=== PATIENT | female | born 1995 | race African-American/Black ===

== ENCOUNTER 2018-11-19 21:35 | Inpatient (IN) ==
[2018-11-19] MEDS ORDERED: ONDANSETRON 4 MG/2 ML VIAL IV PRN (21:42)
[2018-11-19] MEDS ORDERED: FAMOTIDINE 20 MG/2 ML VIAL IV PRN (21:42)
[2018-11-19] MEDS ORDERED: MEPERIDINE 50 MG/1 ML VIAL IV PRN (21:42)
[2018-11-19] MEDS ORDERED: CITRIC ACID/SODIUM CITRATE 30 ML UDCUP PO PRN (21:50)
[2018-11-19 22:08] LABS: Basophils % 0.3 % (0.0-0.8); Eosinophils # 0.1 10*3/uL (0.0-0.87); Eosinophils % 0.4 % (0.00-10.9); Hematocrit 32.6 VOL% (35.7-47.0); Hemoglobin 10.4 GM/DL (12.0-16.0); Immature Granulocytes % 0.7 %; Immature Granulocytes Absolute 0.08 #; Lymphocytes # 2.6 10*3/uL (1.4-4.0); Lymphocytes % 22.4 % (21.3-54.2); Mean Corpuscular HGB Conc 31.9 GM/DL (32-36); Mean Platelet Volume 11.1 FL (9.6-12.0); Monocytes % 9.1 % (1.7-12.7); Neutrophils % 67.1 % (38.7-73.9); Platelet Count 369 T/CUMM (130-400); Red Blood Count 3.93 MC/CUMM (3.8-5.5); White Blood Count 11.5 T/CUMM (4-12)
[2018-11-19 22:31] LABS: Albumin 2.4 G/DL (3.4-5.0); Calcium 8.6 MG/DL (8.5-10.1); Osmolality,Calculated 270.8 MOS/KG (273-304); Total Protein 7.4 G/DL (6.4-8.3); Uric Acid 4.4 MG/DL (2.6-6.0)
[2018-11-19 23:53] LABS: INR 0.9; Partial Thromboplastin Time 27.9 SECS (20.8-36.0)
[2018-11-20] MEDS: BUTORPHANOL 2 MG/ML VIAL IV PRN ×2 (04:25→08:04)
[2018-11-20] MEDS: LACTATED RINGERS 1,000 ML IV SCH (04:29)
[2018-11-20] MEDS ORDERED: hydrOXYzine HCL 25 MG/1 ML VIAL IM PRN (11:56)
[2018-11-20] MEDS ORDERED: ONDANSETRON 4 MG/2 ML VIAL IV ONE (11:56)
[2018-11-20] MEDS ORDERED: NALOXONE 0.4 MG/ML VIAL IV PRN (11:56)
[2018-11-20] MEDS ORDERED: PROMETHAZINE 25 MG/1 ML VIAL IM ONE (11:56)
[2018-11-20] MEDS ORDERED: diphenhydrAMINE 50 MG/1 ML VIAL IV PRN ×2 (11:56)
[2018-11-20] MEDS ORDERED: ePHEDrine 50 MG/ML AMP IV PRN (11:56)
[2018-11-20] MEDS ORDERED: TERBUTALINE 1 MG/1 ML VIAL SUBCUT ONE ×2 (13:09→13:24)
[2018-11-20] MEDS ORDERED: miSOPROStol 200 MCG TABLET ONE (13:45)
[2018-11-20] MEDS ORDERED: METHYLERGONOVINE 0.2 MG/1 ML AMP ONE (13:45)
[2018-11-20] MEDS ORDERED: OXYTOCIN/LR 20 UNIT/1,000 ML BAG IV ONE ×2 (13:45→15:50)
[2018-11-20] MEDS ORDERED: TRANEXAMIC ACID 1,000 MG/10 ML VIAL ONE (13:45)
[2018-11-20] MEDS ORDERED: CARBOPROST TROMETHAMINE 250 MCG/ML AMP IM ONE (13:46)
[2018-11-20 13:58] LABS: Apearance,Urine CLEAR (Clear); Bacteria,Urine Occasional /HPF (Few); Bilirubin,Urine Negative (Negative); Blood, Urine Moderate mg/dL (Negative); Glucose,Urine (UA) Negative (Negative); Hyaline Casts,Urine 1 /LPF (0-3); Ketones,Urine Negative (Negative); Mucus,Urine Occasional /LPF (Occasional); Nitrite,Urine Negative (Negative); Protein,Urine Negative; RBC,Urine 183 /HPF (0-4); Squamous Epithelial Cell,Urine Occasional /HPF (0-10); Urine Color Yellow (Yellow); Urine Specific Gravity 1.009 (1.001-1.035); Urine Urobilinogen < 2.0 EU/DL (0.2-1.0)
[2018-11-20] MEDS ORDERED: HYDROCORTISONE 2.5% RECTAL CREAM 30 GM TUBE TOP PRN (15:50)
[2018-11-20] MEDS ORDERED: LANOLIN 50% CREAM 0.3 OZ TUBE TOP PRN (15:50)
[2018-11-20] MEDS ORDERED: RHO(D) IMMUNE GLOBULIN 300 MCG SYRINGE IM ONE (15:50)
[2018-11-20] MEDS ORDERED: ONDANSETRON 4 MG/2 ML VIAL IV PRN (15:50)
[2018-11-20] MEDS ORDERED: BISACODYL 10 MG SUPP RECTAL PRN (15:50)
[2018-11-20] MEDS ORDERED: BENZOCAINE 20%/MENTHOL 0.5% SPRAY 56 GM CAN TOP PRN (15:50)
[2018-11-20] MEDS ORDERED: ACETAMINOPHEN 325 MG TABLET PO PRN (15:50)
[2018-11-20] MEDS ORDERED: WITCH HAZEL PADS 100/JAR TOP PRN (15:50)
[2018-11-20] MEDS ORDERED: DIPH/TET/ACEL PERT BOOSTER VACCINE 0.5 ML VIAL IM ONE (15:50)
[2018-11-20] MEDS ORDERED: oxyCODONE/ACETAMINOPHEN 5-325 MG TABLET PO PRN ×2 (15:50)
[2018-11-20] MEDS ORDERED: MEASLES/MUMPS/RUBELLA VACCINE 0.5 ML VIAL SUBCUT ONE (15:50)
[2018-11-20] MEDS ORDERED: AMPICILLIN/SULBACTAM 3,000 MG in SODIUM CHLORIDE 0.9% 100 ML IV ONE (17:06)
[2018-11-20] MEDS: IBUPROFEN 800 MG TABLET PO PRN (22:33)
[2018-11-21] MEDS ORDERED: AMPICILLIN/SULBACTAM 1,500 MG in SODIUM CHLORIDE 0.9% 100 ML IV SCH
[2018-11-21] MEDS: fentaNYL 2 MCG/ROPIV 0.2% EPID 100 ML EPIDURAL SCH (00:57)
[2018-11-21] MEDS: LACTATED RINGERS 1,000 ML IV SCH ×3 (00:58→01:22)
[2018-11-21] MEDS: AMPICILLIN/SULBACTAM 1,500 MG in SODIUM CHLORIDE 0.9% 100 ML IV SCH ×3 (01:06→12:09)
[2018-11-21] MEDS: DOCUSATE SODIUM 100 MG CAPSULE PO SCH ×3 (03:29→21:19)
[2018-11-21 06:31] LABS: Basophils # 0.1 10*3/uL (0.0-0.2); Basophils % 0.4 % (0.0-0.8); Eosinophils # 0.1 10*3/uL (0.0-0.87); Eosinophils % 0.9 % (0.00-10.9); Hematocrit 30.7 VOL% (35.7-47.0); Hemoglobin 9.7 GM/DL (12.0-16.0); Immature Granulocytes % 0.4 %; Immature Granulocytes Absolute 0.05 #; Lymphocytes # 2.7 10*3/uL (1.4-4.0); Lymphocytes % 21.7 % (21.3-54.2); Mean Corpuscular HGB Conc 31.6 GM/DL (32-36); Mean Corpuscular Volume 83.7 FL (87-102); Mean Platelet Volume 11.2 FL (9.6-12.0); Monocytes % 10.2 % (1.7-12.7); Neutrophils % 66.4 % (38.7-73.9); Platelet Count 314 T/CUMM (130-400); Red Blood Count 3.67 MC/CUMM (3.8-5.5); Red Cell Distribution Width 17.5 % (9.3-17.3); White Blood Count 12.4 T/CUMM (4-12)
[2018-11-21] MEDS: IBUPROFEN 800 MG TABLET PO PRN ×3 (06:41→21:19)
[2018-11-22 07:31] VITALS: BP 133/72
[2018-11-22] MEDS: DOCUSATE SODIUM 100 MG CAPSULE PO SCH (07:57)
[2018-11-22] MEDS: IBUPROFEN 800 MG TABLET PO PRN (07:57)
== END 2018-11-22 14:15 | disposition home or self-care (01) | DRG 807 ==
LOC: N.LDOUT 21:35 → N.LD 21:36 → N.OB 11-20 18:30
PROVIDERS: ADMIT Specialist; ATTEND Specialist

== ENCOUNTER 2019-10-08 16:36 | Inpatient (IN) ==
[2019-10-08] MEDS ORDERED: LACTATED RINGERS 500 ML IV PRN (17:00)
[2019-10-08] MEDS ORDERED: LACTATED RINGERS 1,000 ML IV SCH (17:00)
[2019-10-08] MEDS ORDERED: ONDANSETRON 4 MG/2 ML VIAL IV PRN ×2 (17:00→17:04)
[2019-10-08] MEDS ORDERED: OXYTOCIN/LR 20 UNIT/1,000 ML BAG IV ONE ×2 (17:02→17:04)
[2019-10-08] MEDS ORDERED: BISACODYL 10 MG SUPP RECTAL PRN (17:04)
[2019-10-08] MEDS ORDERED: LANOLIN 50% CREAM 0.3 OZ TUBE TOP PRN (17:04)
[2019-10-08] MEDS ORDERED: WITCH HAZEL PADS 100/JAR TOP PRN (17:04)
[2019-10-08] MEDS ORDERED: RHO(D) IMMUNE GLOBULIN 300 MCG SYRINGE IM ONE (17:04)
[2019-10-08] MEDS ORDERED: HYDROCORTISONE 2.5% RECTAL CREAM 30 GM TUBE TOP PRN (17:04)
[2019-10-08] MEDS ORDERED: BENZOCAINE 20%/MENTHOL 0.5% SPRAY 56 GM CAN TOP PRN (17:04)
[2019-10-08] MEDS ORDERED: oxyCODONE/ACETAMINOPHEN 5-325 MG TABLET PO PRN (17:04)
[2019-10-08] MEDS ORDERED: ACETAMINOPHEN 325 MG TABLET PO PRN (17:04)
[2019-10-08] MEDS ORDERED: DIPH/TET/ACEL PERT BOOSTER VACCINE 0.5 ML VIAL IM ONE (17:04)
[2019-10-08] MEDS ORDERED: MEASLES/MUMPS/RUBELLA VACCINE 0.5 ML VIAL SUBCUT ONE (17:04)
[2019-10-08] MEDS: IBUPROFEN 800 MG TABLET PO PRN (17:31)
[2019-10-08 17:45] LABS: Cord Venous Blood PCO2 39.1 MMHG; Cord Venous Blood PO2 35.6
[2019-10-08 18:29] LABS: Basophils % 0.3 % (0.0-0.8); Hematocrit 37.8 VOL% (35.7-47.0); Hemoglobin 12.1 GM/DL (12.0-16.0); Immature Granulocytes % 0.3 %; Immature Granulocytes Absolute 0.04 #; Lymphocytes # 1.2 10*3/uL (1.4-4.0); Lymphocytes % 9.6 % (21.3-54.2); Mean Corpuscular Volume 87.3 FL (87-102); Mean Platelet Volume 11.5 FL (9.6-12.0); Monocytes % 4.8 % (1.7-12.7); Platelet Count 357 T/CUMM (130-400); Red Blood Count 4.33 MC/CUMM (3.8-5.5); Red Cell Distribution Width 15.7 % (9.3-17.3); White Blood Count 12.2 T/CUMM (4-12)
[2019-10-08] MEDS: DOCUSATE SODIUM 100 MG CAPSULE PO SCH (21:24)
[2019-10-08] MEDS: oxyCODONE/ACETAMINOPHEN 5-325 MG TABLET PO PRN (21:24)
[2019-10-09] MEDS: oxyCODONE/ACETAMINOPHEN 5-325 MG TABLET PO PRN ×2 (02:59→15:49)
[2019-10-09 05:57] LABS: Basophils # 0.1 10*3/uL (0.0-0.2); Basophils % 0.4 % (0.0-0.8); Eosinophils # 0.1 10*3/uL (0.0-0.87); Eosinophils % 0.7 % (0.00-10.9); Hematocrit 33.2 VOL% (35.7-47.0); Hemoglobin 10.8 GM/DL (12.0-16.0); Immature Granulocytes % 0.3 %; Immature Granulocytes Absolute 0.04 #; Lymphocytes # 2.9 10*3/uL (1.4-4.0); Lymphocytes % 21.7 % (21.3-54.2); Mean Corpuscular HGB Conc 32.5 GM/DL (32-36); Mean Corpuscular Volume 86.2 FL (87-102); Mean Platelet Volume 11.6 FL (9.6-12.0); Neutrophils % 67.9 % (38.7-73.9); Platelet Count 314 T/CUMM (130-400); Red Blood Count 3.85 MC/CUMM (3.8-5.5); Red Cell Distribution Width 15.8 % (9.3-17.3); White Blood Count 13.2 T/CUMM (4-12)
[2019-10-09] MEDS: IBUPROFEN 800 MG TABLET PO PRN ×2 (08:35→21:10)
[2019-10-09] MEDS: DOCUSATE SODIUM 100 MG CAPSULE PO SCH ×2 (08:35→21:10)
[2019-10-10 07:53] VITALS: BP 144/81
[2019-10-10] MEDS: DOCUSATE SODIUM 100 MG CAPSULE PO SCH (09:09)
== END 2019-10-10 12:25 | disposition home or self-care (01) ==
LOC: N.LDOUT 16:36 → N.LD 16:39 → N.OB 20:45
PROVIDERS: ADMIT Specialist; ATTEND Specialist